=== PATIENT | female | born 1970 | race Caucasian/White ===

== ENCOUNTER 2016-09-28 07:38 | Emergency (ER) | payer BC ==
[2016-09-28 07:44] VITALS: BP 125/59; PULSE 101; RESP 18; TEMP 98.6
--- NOTE | 2016-09-28 08:06 | ED ---
Female Urogenital HPI - General Chief complaint: Urogenital Stated complaint: Poss.bladder infection Time Seen by Provider: 09/28/16 07:47 Source: patient, RN notes reviewed Mode of arrival: ambulatory Limitations: no limitations - History of Present Illness Initial comments: This is a 46-year-old female who presents with complaints of urinary frequency and back pain with fevers and chills for the past 6 days she also however complains of having a sore throat frontal headache gets worse with positional changes and movement and some slight ear pain. Currently she states the pain is not there she states she also had bilateral flank pain which is not there right now no nausea vomiting or other symptoms. No palpitations no cough no phlegm production. She also was not sure some of the symptoms were attributable to menopause. MD Complaint: dysuria, other - Related Data Home Medications Medication Instructions Recorded Confirmed Cranberry Extract [Cranberry] 500 mg PO DAILY 09/28/16 09/28/16 Ibuprofen [Motrin] 400 mg PO Q6HR PRN 09/28/16 09/28/16 Multivitamins, Thera [Multivitamin 1 tab PO DAILY 09/28/16 09/28/16 (formulary)] valACYclovir HCL [Valtrex] 500 mg PO DAILY 09/28/16 09/28/16 Previous Rx's Medication Instructions Recorded Amoxicillin/Potassium Clav 1 tab PO Q12HR #20 tab 09/28/16 [Augmentin 875-125 Tablet] guaiFENesin [Mucinex] 600 mg PO Q12HR #20 tablet.er 09/28/16 Allergies Allergy/AdvReac Type Severity Reaction Status Date / Time Sulfa (Sulfonamide Allergy Rash/Hives Verified 09/28/16 08:12 Antibiotics) Penicillins AdvReac Nausea & Verified 09/28/16 08:12 Vomiting Review of Systems ROS Statement: Those systems with pertinent positive or pertinent negative responses have been documented in the HPI. ROS Other: All systems not noted in ROS Statement are negative. Past Medical History Past Medical History: No Reported History History of Any Multi-Drug Resistant Organisms: None Reported Past Surgical History: Appendectomy, Section Past Psychological History: No Psychological Hx Reported Smoking Status: Never smoker Past Alcohol Use History: None Reported Past Drug Use History: None Reported General Exam - General Exam Comments Initial Comments: This is a well-developed well-nourished awake alert oriented 3 female Limitations: no limitations General appearance: alert, in no apparent distress Head exam: Present: atraumatic, normocephalic, normal inspection Eye exam: Present: normal appearance, PERRL, EOMI. Absent: scleral icterus, conjunctival injection, periorbital swelling ENT exam: Present: mucous membranes moist, other (Boggy swollen nasal mucosa some dullness of both tympanic membranes especially on the left small amount of fluid behind the left membrane.) Neck exam: Present: normal inspection. Absent: tenderness, meningismus, lymphadenopathy Respiratory exam: Present: normal lung sounds bilaterally. Absent: respiratory distress, wheezes, rales, rhonchi, stridor Cardiovascular Exam: Present: regular rate, normal rhythm, normal heart sounds. Absent: systolic murmur, diastolic murmur, rubs, gallop, clicks GI/Abdominal exam: Present: soft, normal bowel sounds. Absent: distended, tenderness, guarding, rebound, rigid Extremities exam: Present: normal inspection, full ROM, normal capillary refill. Absent: tenderness, pedal edema, joint swelling, calf tenderness Back exam: Present: normal inspection, full ROM. Absent: tenderness, CVA tenderness (R), CVA tenderness (L), muscle spasm, paraspinal tenderness, vertebral tenderness Neurological exam: Present: alert, oriented X3, CN II-XII intact Psychiatric exam: Present: normal affect, normal mood Skin exam: Present: warm, dry, intact, normal color. Absent: rash Course Vital Signs 09/28/16 07:41 Temperature 98.6 F Pulse Rate 101 H Respiratory 18 Rate Blood Pressure 125/59 O2 Sat by Pulse 100 Oximetry Medical Decision Making - Medical Decision Making The UA was essentially unremarkable. I did discuss findings with the patient and believe the clinical presentation is consistent with frontal sinusitis. Patient will be placed on appropriate medication she is a follow-up with her doctor and return when necessary we did discuss her concern for toxic shock syndrome she does not meet the criteria. - Lab Data Lab Results 09/28/16 Range/Units 07:58 Urine Color Yellow Urine Appearance Clear (Clear) Urine pH 6.5 (5.0-8.0) Ur Specific [place] 1.007 (1.001-1.035) Urine Protein Trace H (Negative) Urine Glucose (UA) Negative (Negative) Urine Ketones Negative (Negative) Urine Blood Negative (Negative) Urine Nitrite Negative (Negative) Urine Bilirubin Negative (Negative) Urine Urobilinogen <2.0 (<2.0) mg/dL Ur Leukocyte Esterase Negative (Negative) Disposition Clinical Impression: Frontal sinusitis Disposition: HOME SELF-CARE Condition: Good Instructions: Sinusitis (ED) Prescriptions: Amoxicillin/Potassium Clav [Augmentin 875-125 Tablet] 1 tab PO Q12HR #20 tab guaiFENesin [Mucinex] 600 mg PO Q12HR #20 tablet.er Referrals: Nabil Oquendo MD [Primary Care Provider] - 1-2 days
[2016-09-28 08:08] LABS: Appearance,Urine Clear (Clear); Bilirubin,Urine Negative (Negative); Glucose,Urine (UA) Negative (Negative); Ketones,Urine Negative (Negative); Leukocyte Esterase,Urine Negative (Negative); Nitrite,Urine Negative (Negative); PH, Urine 6.5 (5.0-8.0); Protein,Urine Trace (Negative); Specific Gravity,Urine 1.007 (1.001-1.035); UA Billing (MACRO vs. MICRO) CHEM; Urobilinogen,Urine <2.0 mg/dL (<2.0)
== END 2016-09-28 08:53 | disposition home or self-care (01) ==
LOC: EC 07:38
DX: J32.1 Chronic frontal sinusitis (principal); R35.0 Frequency of micturition; M54.9 Dorsalgia, unspecified; Z79.899 Other long term (current) drug therapy; Z88.0 Allergy status to penicillin; Z88.2 Allergy status to sulfonamides
CPT/HCPCS: 81003; 99283

== ENCOUNTER → 2017-03-16 | Outpatient (CLI) | payer BC ==
--- NOTE | 2017-03-17 12:42 | MM ---
Reason for exam: screening (asymptomatic). Last mammogram was performed 2 years and 10 months ago. Physical Findings: A clinical breast exam by your physician is recommended on an annual basis and results should be correlated with mammographic findings. MG Screening Mammo w CAD Bilateral CC and MLO view(s) were taken. Prior study comparison: May 29, 2014, bilateral MG screening mammo w CAD. February 27, 2004, bilateral screening mammogram. The breast tissue is heterogeneously dense. This may lower the sensitivity of mammography. No suspicious abnormality. No significant changes when compared with prior studies. ASSESSMENT: Negative, BI-RAD 1 RECOMMENDATION: Routine screening mammogram of both breasts in 1 year.
== END ==
LOC: RADMAMWWP 10:09
PROVIDERS: ATTEND Obstetrics & Gynecology
DX: Z12.31 Encounter for screening mammogram for malignant neoplasm of breast (principal); F32.89 Other specified depressive episodes
CPT/HCPCS: 84439; 84443; 36415; G0202

== ENCOUNTER 2017-07-12 06:25 | Day surgery (SDC) | payer BC ==
[2017-07-07 15:22] VITALS: BMI 25.4
--- NOTE | 2017-07-11 17:01 | P.HPOB ---
History of Present Illness H&P Date: 07/11/17 Chief Complaint: Menorrhagia with irregular cycle This is a 47-year-old female 3 para 3 who presents for dilation and curettage with hysteroscopy and NovaSure endometrial ablation secondary to menorrhagia with irregular cycle. Her menses are occurring anywhere from 1-2 months apart and lasting 3-4 days but sometimes extremely heavy with large clots. In addition she has left pelvic pain during her menses. Her pelvic ultrasound showed a uterus measuring 8.9 x 5.5 x 4.4 cm with an endometrial stripe of 1.5 cm. Left ovary had a 2.1 cm simple cyst. She is experiencing some hot flashes and night sweats. She did try a low-dose control pill but could not tolerate it due to migraine headaches. She would like definitive surgical treatment to control her bleeding problem. Obstetrical history: . History of 1 vaginal delivery and 2 sections. Gynecologic history: No history of sexually transmitted diseases. She has had a tubal ligation. Social history: She is . She works at [email or web address]. Review of Systems Constitutional: Denies chills, Denies fever Eyes: denies blurred vision, denies pain Ears, nose, mouth and throat: Reports headache, Denies sore throat Cardiovascular: Denies chest pain, Denies shortness of breath Respiratory: Denies cough Gastrointestinal: Denies abdominal pain, Denies diarrhea, Denies nausea, Denies vomiting Genitourinary: Reports dysmenorrhea, Reports menorrhagia, Reports pelvic pain Menstruation: Reports period heavy Musculoskeletal: Reports low back pain Neurological: Reports numbness (Hands) Endocrine: Reports flushing Past Medical History Past Medical History: No Reported History, GERD/Reflux Additional Past Medical History / Comment(s): MIGRAINES, HEAVY PAINFUL MENSTRUAL PERIODS. , HX OF COLD SORES., SEES CHIROPRACTOR. History of Any Multi-Drug Resistant Organisms: None Reported Past Surgical History: Appendectomy, Section, Tubal Ligation Past Anesthesia/Blood Transfusion Reactions: Motion Sickness, Postoperative Nausea & Vomiting (PONV) Past Psychological History: No Psychological Hx Reported Smoking Status: Never smoker Past Alcohol Use History: None Reported Past Drug Use History: None Reported - Past Family History Mother Additional Family Medical History / Comment(s): PULMONARY FIBROSIS Father Family Medical History: Cancer Additional Family Medical History / Comment(s): LEUKEMIA Medications and Allergies Home Medications Medication Instructions Recorded Confirmed Type Cranberry Fruit Extract [Cranberry] 500 mg PO DAILY 09/28/16 07/07/17 History Multivitamins, Thera [Multivitamin 1 tab PO DAILY 09/28/16 07/07/17 History (formulary)] valACYclovir HCL [Valtrex] 250 mg PO DAILY 09/28/16 07/07/17 History Glucosam/Freddie-Msm1/C/Derrell/Bosw 1 each PO DAILY 07/07/17 07/07/17 History [Glucosamine-Chondroitin Tablet] Ibuprofen 400 mg PO BID PRN 07/07/17 07/07/17 History Lysine 500 mg PO DAILY 07/07/17 07/07/17 History Allergies Allergy/AdvReac Type Severity Reaction Status Date / Time sulfamethoxazole Allergy Unknown Nausea & Verified 07/07/17 14:58 [From Bactrim] Vomiting, FELT LIKE FLU trimethoprim [From Bactrim] Allergy Unknown Nausea & Verified 07/07/17 14:58 Vomiting, FELT LIKE FLU Sulfa (Sulfonamide Allergy Rash/Hives Verified 09/28/16 08:12 Antibiotics) Penicillins AdvReac Nausea & Verified 09/28/16 08:12 Vomiting Exam Osteopathic Statement: *. No significant issues noted on an osteopathic structural exam other than those noted in the History and Physical/Consult. HEENT: Within normal limits Heart: Regular rate and rhythm Lungs: Clear to auscultation bilaterally Abdomen: Soft, nontender Pelvic exam: Uterus slightly enlarged, nontender, with no adnexal masses palpated Extremities: Negative Homans Assessment and Plan (1) Menorrhagia with irregular cycle Status: Acute Code(s): N92.1 - EXCESSIVE AND FREQUENT MENSTRUATION WITH IRREGULAR CYCLE SNOMED Code(s): 356998152 Plan: Proceed with dilation and curettage with hysteroscopy and NovaSure endometrial ablation. I have discussed the risks, benefits, and alternative therapies for the above- mentioned procedure and for both sedation/anesthesia as well as necessary blood products administration, if indicated, as they pertain to this patient. The patient has indicated her understanding and acceptance of the risks and procedures discussed.
[~2017-07-12 06:25] MED LIST: DEXAMETHASONE SOD PHOSPHATE 10 MG/ML 1 ML VIAL IV ONE; LACTATED RINGERS 1,000 ML IV SCH; LIDOCAINE 1% 20 ML VIAL (10MG/ML) FOR IV START INTRADERMA PRN; MORPHINE SULFATE 2 MG/ML SYRINGE IV PRN; ONDANSETRON 4 MG/2 ML VIAL IVP ONE; Pre Op ABX Message 1 EACH MISC MISCELLANE ONE; SCOPOLAMINE 1.5MG/72HR PATCH TRANSDERM ONE
[2017-07-12] MEDS ORDERED: MIDAZOLAM 2 MG/2 ML VIAL IVP ONE (07:06)
[2017-07-12] MEDS ORDERED: fentaNYL (PF) 50 MCG/ML 2 ML AMP ONE (07:27)
[2017-07-12] MEDS ORDERED: PROPOFOL 10 MG/ML 20 ML VIAL IV ONE (07:27)
[2017-07-12] MEDS ORDERED: LIDOCAINE 1% INJ 10MG/ML (20 ML MDV) ONE (07:27)
[2017-07-12] MEDS ORDERED: KETOROLAC 30 MG/ML 1 ML VIAL ONE (07:27)
--- NOTE | 2017-07-12 07:52 | P.OP ---
Date of Procedure: 07/12/17 Preoperative Diagnosis: Menorrhagia with irregular cycle Postoperative Diagnosis: Same Procedure(s) Performed: Dilation and curettage with hysteroscopy and NovaSure endometrial ablation Anesthesia: other (Mask general) Surgeon: Carmen Reece Estimated Blood Loss (ml): 3 Pathology: other (Endometrial curettings) Condition: stable Disposition: same day Indications for Procedure: This is a 47-year-old female 3 para 3 who presents for dilation and curettage with hysteroscopy and NovaSure endometrial ablation secondary to menorrhagia with irregular cycle. Her menses are occurring anywhere from 1-2 months apart and lasting 3-4 days but sometimes extremely heavy with large clots. In addition she has left pelvic pain during her menses. Her pelvic ultrasound showed a uterus measuring 8.9 x 5.5 x 4.4 cm with an endometrial stripe of 1.5 cm. Left ovary had a 2.1 cm simple cyst. She is experiencing some hot flashes and night sweats. She did try a low-dose control pill but could not tolerate it due to migraine headaches. She would like definitive surgical treatment to control her bleeding problem. Operative Findings: Uterus is anteverted with no adnexal masses palpated. Cervix is sounded to 2 cm and uterus is sounded to 7.5 cm. Upon hysteroscopy both tubal ostia are visualized and no specific abnormalities are visualized. A moderate amount of endometrial curettings are obtained. Description of Procedure: The patient is taken to the operating room. She is placed in the dorsal lithotomy position after general anesthesia was given. She is prepped and draped in the normal sterile fashion. Bladder is drained with a catheter and then removed. Pelvic exam is performed under anesthesia. Uterus is found to be anteverted with no adnexal masses. She is placed in slight Trendelenburg position. A right angle retractor is used to visualize the cervix. The anterior lip of the cervix is grasped with a single-tooth tenaculum. Cervix is sounded to 2 cm. Uterus is sounded to 7.5 cm. Cervix is gently dilated with Gonzales dilators until a hysteroscope could be passed. Hysteroscopy is performed using normal saline. The above noted findings are noted. Next a polyp forceps is introduced. A minimal amount of tissue was obtained. Next medium-sized size sharp curette was placed. A moderate amount of endometrial curettings were obtained. Next NovaSure array was inserted into the endometrial cavity. Length was set at 5.5 cm and width was determined to be 3.5 cm. Next cavity assessment was completed and passed on the first try. Next NovaSure array was fired at 106 W for 87 seconds. Next the array was removed, inspected and then discarded. Next the hysteroscope was reinserted. Uniform charring was noted. Pictures were taken. Hysteroscope was removed. Single-tooth tenaculum was removed from the anterior lip of the cervix. Minimal bleeding was noted. All other instruments removed from the vagina. Sponge counts were correct. Patient is taken to recovery room in stable condition.
[2017-07-12 08:06] VITALS: TEMP 97.2
[2017-07-12] MEDS ORDERED: HYDROmorphone 0.5 MG/0.5 ML SYRINGE IVP ONE (08:28)
[2017-07-12 08:32] VITALS: RESP 16
[2017-07-12 09:51] VITALS: BP 123/75; PULSE 75
== END 2017-07-12 09:48 | disposition home or self-care (01) ==
LOC: OR 06:25
PROVIDERS: ATTEND Obstetrics & Gynecology
DX: N92.1 Excessive and frequent menstruation with irregular cycle (principal); N94.6 Dysmenorrhea, unspecified; N83.292 Other ovarian cyst, left side; Z98.51 Tubal ligation status; K21.9 Gastro-esophageal reflux disease without esophagitis; G43.909 Migraine, unspecified, not intractable, without status migrainosus; Z79.899 Other long term (current) drug therapy; Z88.1 Allergy status to other antibiotic agents; Z88.2 Allergy status to sulfonamides; Z88.0 Allergy status to penicillin
CPT/HCPCS: 81025; 88305; 58563; J2250; J1100; J2405; J2001; J3010; J1885; J2704; J1170

== ENCOUNTER → 2023-06-18 | Outpatient (CLI) | payer BC ==
--- NOTE | 2023-06-21 09:17 | MM ---
Reason for Exam: Screening (asymptomatic). Last mammogram was performed 6 year(s) and 3 month(s) ago. Patient History: Menarche at age 10. First Full-Term at age 22. Perimenopausal. Risk Values: Cinthia 5 year model risk: 1.1%. NCI Lifetime model risk: 7.4%. Prior Study Comparison: 02/27/2004 Bilateral Screening Mammogram, [facility]. 05/29/2014 Bilateral Screening Mammogram, [facility]. 03/16/2017 Bilateral Screening Mammogram, [facility]. Tissue Density: There are scattered fibroglandular densities. Findings: Analyzed By CAD. There is no suspicious group of microcalcifications or new suspicious mass. Overall Assessment: Negative, BI-RAD 1 Management: Screening Mammogram of both breasts in [address] [facility] will attempt to contact patient to return for supplemental views and ultrasound if indicated. Patient should continue monthly self-breast exams. A clinical breast exam by your physician is recommended on an annual basis. This exam should not preclude additional follow-up of suspicious palpable abnormalities. Note on Cinthia scores and lifetime risk: 1. A Cinthia score greater than 3% is considered moderate risk. If this is the case, consider specialist referral to assess eligibility for a risk reducing agent. 2. If overall lifetime risk for the development of breast cancer is 20% or higher, the patient may qualify for future screening with alternating mammogram and breast MRI. Electronically signed and approved by: Seb Mendieta DO
== END | disposition home or self-care (01) ==
LOC: RADMAMWWP 13:11
PROVIDERS: ATTEND Family Medicine
DX: Z12.31 Encounter for screening mammogram for malignant neoplasm of breast (principal)
CPT/HCPCS: 77063; 77067